=== PATIENT | male | born 1950 | race Two or more races ===

== ENCOUNTER 2019-04-21 13:45 | Emergency (ER) | payer BC, MEDICARE ==
--- OUTSIDE RECORDS SUMMARY | 2019-04-21 14:11 | XMS REPORT | Continuity of Care Document ---
:1950 External Reference #:[id number] Author Name RICARDA Gan Address [address] [place] [address] Care Team Providers Name Role Phone Jack Osborn MD - Family Medicine Care Team Information Workgroup Leader [facility] - Care Team Information Workgroup Leader [phone] Gastroenterology Problems Active Problems Provider Date Anxiety state Jack Osborn M.D. Onset: 06/08/2011 Mixed hyperlipidemia Jack Osborn M.D. Onset: 10/14/2016 Disorder of oral soft tissues Jack Osborn M.D. Onset: 03/27/2015 Benign neoplasm of colon Jack Osborn M.D. Onset: 03/27/2015 Esophageal dysmotility Jack Osborn M.D. Onset: 01/22/2013 Social History Type Date Description Comments Sex Unknown ETOH Use Rare Tobacco Use Start: Unknown Patient has never smoked Smoking Status Reviewed: 04/17/19 Patient has never smoked Allergies, Adverse Reactions, Alerts Description No Known Drug Allergies Medications Active Medications SIG Qnty Indications Ordering Provider Date Orphenadrine Citrate take 1 tablet 60tabs M54.6 Jack Osborn, 2019 ER every 12 hours M.D. 100mg Tablets ER for muscle pain. 12HR Rosuvastatin Calcium Take 1 Tablet By 90tabs Jack Osborn, 10/27/2016 Mouth Every Day M.D. 5mg Tablets Viagra take 1/2 to 1 9tabs Jack Osborn, 02/20/2016 100mg Tablets tablet by mouth M.D. 15 minutes prior to sexual activity as directed Tums chew 2 tablets by Unknown 500mg Chewtabs mouth three times a day as needed Aspirin 81 1 by mouth every Unknown 81mg Tablets day DR History Medications Omeprazole 1 by mouth 90Caps K21.9 Jack AliceaDionne Anurag, 01/16/2019 - 20mg every day M.D. 04/17/[address] Immunizations CPT Code Status Date Vaccine Lot # [id number] Given 11/20/2018 Influenza Vac, Quadriv[place], [place] [id number] Given 01/11/2018 Pneumococcal Immunization [id number] Given 12/27/2016 High-Dose, Influenza Virus Vacccine-fluzone 65 and older [id number] Given 10/14/2016 Pneumococcal Conjugate Vacc-13 [id number] [id number] Given 12/09/2015 Influenza Vac, Quadriv[place], [place] [id number] Given 11/30/2012 DO Not Use Split Influenza Virus Vaccine Vital Signs Date Vital Result Comment 04/17/2019 2:28pm BP Systolic 130 mmHg BP Diastolic 80 mmHg Heart Rate 72 /min Body Temperature 97.9 F Height 68 inches 5'8" Weight 160.00 lb BMI (Body Mass Index) 24.3 kg/m2 01/16/2019 9:26am BP Systolic 140 mmHg BP Diastolic 84 mmHg Heart Rate 68 /min Body Temperature 98.5 F Respiratory Rate 16 /min Height 68 inches 5'8" Weight 158.00 lb BMI (Body Mass Index) 24.0 kg/m2 Results Test Acquired Date Facility Test Result H/L Range Note Lipid Profile 01/16/2019 [facility](a) Cholesterol 141 mg/dL 120- 200 Triglycerides 44 mg/dL 30-200 HDL Cholesterol 55 mg/dL 30-70 LDL (Calculated) 77 CALC 0-129 VLDL Cholesterol 9 mg/dL 0-50 HDL Risk Factor 2.6 CALC 0.0-4.4 Comprehensive Metabolic 01/16/2019 [facility](fma) Sodium 138 mEq/L 134-149 Prof Potassium 3.7 mEq/L 3.6-5.5 Chloride 103 mEq/L 94-112 Carbon Dioxide 26 mEq/L 21-32 Glucose 88 mg/dL 70-105 BUN 17 mg/dL 6-26 Creatinine 0.8 mg/dL 0.6-1.4 BUN/Creat Ratio 21.3 CALC 8.0-36.0 Calcium 9.2 mg/dL 8.6-10.2 Total Protein 6.7 g/dL 6.4-8.3 Albumin 4.6 g/dL 3.8-5.5 Globulin 2.1 g/dL 2.0-4.8 A/G Ratio 2.2 CALC 0.6-2.3 Alk. Phosphatase 61 U/L 22-95 Alt (SGPT) 28 U/L 7-35 Ast (Sgot) 34 U/L 5-34 Total Bilirubin 0.9 mg/dL 0.2-1.3 GFR Non- >60 ml/min/1.73m^ >=60 GFR >60 ml/min/1.73m^ >=60 Laboratory test 01/16/2019 [facility](fma) PSA 0.9 ng/mL 0.0-4.0 finding Ict-Hemoccult 11/17/2018 family medicine Ict Hemoccult 11/02/18 Neg. (MCR)Fma Screeni (607)- - (1) Ict Hemoccult-(2) 11/03/18 Neg. Ict-Hemoccult (3) 11/04/18 Neg. Procedures Date Code Description Status 01/16/2019 06220 Electrocardiogram Complete Completed 03/12/2013 43047080 Colonoscopy Completed Medical Devices Description No Information Available Encounters Type Date Location Provider Dx Diagnosis Office Visit 01/16/2019 [facility] Office Jack Osborn, Z00.00 Encntr for general 9:20a M.D. adult medical exam w/o abnormal findings E78.2 Mixed hyperlipidemia Z12.5 Encounter for screening for malignant neoplasm of prostate M54.30 Sciatica, unspecified side K21.9 Gastro-esophageal reflux disease without esophagitis Assessments Date Code Description Provider 04/17/2019 M54.6 Pain in thoracic spine RICARDA Gan 04/17/2019 M54.2 Cervicalgia RICARDA Gan 01/16/2019 Z00.00 Encounter for general adult medical Jack Osborn M.D. examination without abnormal findings 01/16/2019 E78.2 Mixed hyperlipidemia Jack Osborn M.D. 01/16/2019 Z12.5 Encounter for screening for malignant Jack Osborn M.D. neoplasm of prostate 01/16/2019 M54.30 Sciatica, unspecified side Jack Osborn M.D. 01/16/2019 K21.9 Gastro-esophageal reflux disease without Jack Osborn M.D. esophagitis 11/17/2018 Z12.11 Encounter for screening for malignant Jack Osborn M.D. neoplasm of colon 11/17/2018 Z12.12 Encounter for screening for malignant Jack Osborn M.D. neoplasm of rectum Plan of Treatment Future Appointment(s):04/24/2019 1:00 pm - RICARDA Gan at [facility]04/17/2019 - Caitlin Saucedo, PAM54.6 Pain in thoracic spineNew Medication: Orphenadrine Citrate ER 100 mg - take 1 tablet every 12 hours for muscle pain.Comments:Use Tylenol and Ibuprofen Use muscle relaxer - try at night, but can use during the day heating pad to the back gentle stretching and range of motion exercises Return next week to follow upM54.2 CervicalgiaComments:Same plan as above Any changes in vision, pain please head to the ER right away follow up in 1 weekAllComments:PCMHMedication Management Patient Understands medications he's taking? Yes Are there Barriers to Adherence? No Has the patient been asked about herbal supplements and therapies, and OTC meds ? Yes Care Plan1. Patient has been queried about patient's goals/ preferences and functional/lifestyle goals at relevant visits. Yes If relevant, describe: N/A2. Treatment goals as explained to the patient: above3. Are there barriers to meeting treatment goals? No If Yes, please describe:4. Self-Management goals as described to the patient: Yes As always, we strongly encourage a healthy diet and making physical activity a part of your every day life. If you have questions about how or where to start, please contact the office. Functional Status Description No Information Available Mental Status Description No Information Available Referrals Description No Information Available
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
[2019-04-21 15:37] LABS: ABS Monocytes 0.4 10^3/ul (0-0.8); ABS Neutrophils 3.8 10^3/ul (1.5-7.7); Eosinophil % 0.3 %; Hematocrit 40 % (42-52); Hemoglobin 14.5 g/dL (14.0-18.0); Lymphocyte % 18.3 %; Mean Corpuscular HGB Conc 36 g/dL (31-36); Mean Corpuscular Hemoglobin 34 pg (27-31); Mean Corpuscular Volume 95 fL (80-94); Mean Platelet Volume 7.1 fL (7.4-10.4); Platelet Count 175 10^3/uL (150-450); Red Blood Count 4.24 10^6 /uL (4.18-5.48); Red Cell Distribution Width 13 % (10-15); White Blood Count 5.2 10^3/uL (3.5-10.8)
[2019-04-21 15:50] LABS: Albumin 4.3 g/dL (3.2-5.2); Albumin/Globulin Ratio 1.8 (1-3); BUN/Creatinine Ratio 21.4 (8-20); C Reactive Protein 2.11 mg/L (<8.01); Calcium 9.5 mg/dL (8.6-10.3); EGFR African American 110.3 (>60); EGFR Non-African American 91.1 (>60); Globulin 2.4 g/dL (2-4); Potassium 3.5 mmol/L (3.5-5.0); Total Bilirubin 0.7 mg/dL (0.2-1.0); Total Protein 6.7 g/dL (6.4-8.9)
[2019-04-21 16:29] VITALS: BP 161/97
== END 2019-04-21 16:30 | disposition home or self-care (01) ==
LOC: ED 13:45
DX: S22.069A Unspecified fracture of T7-T8 vertebra, initial encounter for closed fracture (principal); R51 Headache; R42 Dizziness and giddiness; M54.2 Cervicalgia; Z87.891 Personal history of nicotine dependence; W00.0XXA Fall on same level due to ice and snow, initial encounter; Y92.9 Unspecified place or not applicable
CPT/HCPCS: 36415; 70450; 72125; 72128; 80053; 85025; 86140; 99283